=== PATIENT | female | born 2000 | race Caucasian/White ===

== ENCOUNTER 2019-10-01 02:08 | Inpatient (IN) | payer OTHER ==
[~2019-10-01] VITALS: Ht 165.1 cm; Wt 59.4 kg
[~2019-10-01 02:08] MED LIST: CITA20TA6 PO
[2019-10-01] MEDS ORDERED: PREN1TAB59 PO (02:33)
[2019-10-01] MEDS ORDERED: BENADRYL IV PRN (03:00)
[2019-10-01] MEDS ORDERED: BICITRA PO ONE (03:00)
[2019-10-01] MEDS ORDERED: LIDOCAINE 1% VIAL MC PRN (03:00)
[2019-10-01 03:04] LABS: APPEARANCE,URINE CLEAR (CLEAR); UA COLOR YELLOW (YELLOW)
[2019-10-01 03:05] LABS: BILIRUBIN,URINE NEGATIVE (NEGATIVE); UROBILINOGEN,URINE NORMAL (NEGATIVE)
[2019-10-01] MEDS ORDERED: CLEOCIN 900 MG-D5W-GALAXY 50 ML IV ONE (03:11)
[2019-10-01] MEDS: LACTATED RINGERS 1,000 ML IV SCH ×2 (03:17→06:34)
[2019-10-01 03:30] LABS: BASOPHIL % 0.1 % (0.0-0.2); EOSINOPHIL % 0.2 % (0.0-5.0); LYMPHOCYTES # 1.43 10^3/uL1 (1.2-5.2); LYMPHOCYTES % 9.6 % (24.0-44.0); MEAN CORP HGB 32.8 pg (26-34); MONOCYTES # 0.8 10^3/uL (0.0-0.4); MONOCYTES % 5.3 % (5.0-12.0); NEUTROPHIL # 12.5 10^3/uL (1.8-8.0); NEUTROPHILS % 84.2 % (41.0-85.0); PLATELET COUNT 222 10^3/uL (150-400); RED CELL DISTRIBUTION WIDTH 13.8 % (11.5-14.5)
[2019-10-01] MEDS ORDERED: WATER ONE (03:30)
[2019-10-01] MEDS ORDERED: NAROPIN 0.2% 100 ML BAG 100 ML ONE (03:30)
[2019-10-01] MEDS ORDERED: OXYTOCIN 30 UNIT/NS 500 ML 500 ML IV ONE (03:32)
[2019-10-01] MEDS ORDERED: CLEOCIN IV SCH (06:00)
--- NOTE | 2019-10-01 06:14 | PCM.OBDEL1 ---
OPERATIVE REPORT OPERATIVE REPORT 40.0 over an intact perineum. Viable male infant Apgars 8/9. Loose nuchal cord reduced over body during delivery. handed to mother. Spontaneous cry. Weight 7 pounds 8 ounces. Delayed cord clamp and cut. Cord blood obtained. Spontaneous placenta. Second-degree vaginal and perineal laceration with left lateral vaginal extension repaired with 2-0 and 3-0 chromic. Mother and stable. QBL 100 mL. Name=LAURO Torerz DO Oct 01, 2019 06:14
[2019-10-01] MEDS ORDERED: DERMOPLAST SPRAY TP PRN (07:30)
[2019-10-01] MEDS ORDERED: TYLENOL PO PRN (07:30)
[2019-10-01] MEDS ORDERED: OXYTOCIN 30 UNIT/NS 500 ML 500 ML IV SCH (07:30)
[2019-10-01] MEDS ORDERED: TUCKS TP PRN (07:30)
[2019-10-01] MEDS ORDERED: MYLANTA PO PRN (07:30)
[2019-10-01] MEDS ORDERED: NORCO 5MG PO PRN ×2 (07:30)
[2019-10-01] MEDS ORDERED: LANOLIN HYDROUS TP PRN (07:30)
[2019-10-01] MEDS: MOTRIN PO PRN ×2 (09:24→19:59)
[2019-10-01] MEDS ORDERED: TUCKS ONE (15:05)
[2019-10-01] MEDS ORDERED: LANOLIN HYDROUS TP ONE (15:05)
[2019-10-01] MEDS ORDERED: DERMOPLAST SPRAY TP ONE (15:05)
[2019-10-01] MEDS ORDERED: MOTRIN ONE (19:53)
[2019-10-01] MEDS ORDERED: COLACE PO ONE (21:14)
[2019-10-01] MEDS: COLACE PO SCH (21:20)
[2019-10-02] MEDS ORDERED: MOTRIN ONE (05:35)
[2019-10-02] MEDS: MOTRIN PO PRN (05:40)
[2019-10-02 05:54] LABS: BASOPHIL % 0.2 % (0.0-0.2); EOSINOPHIL # 0.1 10^3/uL (0.0-0.2); EOSINOPHIL % 0.7 % (0.0-5.0); LYMPHOCYTES # 2.05 10^3/uL1 (1.2-5.2); LYMPHOCYTES % 21.1 % (24.0-44.0); MEAN CORP HGB 32.5 pg (26-34); MONOCYTES # 0.6 10^3/uL (0.0-0.4); MONOCYTES % 6.5 % (5.0-12.0); NEUTROPHIL # 6.9 10^3/uL (1.8-8.0); PLATELET COUNT 165 10^3/uL (150-400); RED CELL DISTRIBUTION WIDTH 14.4 % (11.5-14.5)
--- NOTE | 2019-10-02 11:17 | PCM.HP ---
OB-Chief Complaint and HPI Date/Diagnosis Date: Oct 02, 2019 Time: 11:14 Admit Dx: (1) 40 weeks gestation of ICD Codes: Z3A.40 - 40 weeks gestation of SNOMED: 44242672 (2) Active labor at term SNOMED: 85956198 (3) Positive GBS test ICD Codes: B95.1 - Streptococcus, group B, as the cause of diseases classified elsewhere SNOMED: 940739871, 524326215 Chief Complaint/History(PI) : 1 Para: 0 EDC: Oct 01, 2019 Reason for admission: active labor Past Family/Social History Patient History: FH: stroke 33 FATHER Hypertension No known health problems 32 MOTHER G8 BROTHER G8 BROTHER G8 BROTHER G8 SISTER G8 SISTER No Family History of: Alzheimer's disease Asthma Cerebrovascular disorder Chronic obstructive pulmonary disease Congestive heart failure Diabetes insipidus Diabetes mellitus Parkinson's disease Unknown Rubella: immune RPR/VDRL: Negative GBS Status: Positive HBsAG: Negative Provider Note: Pt is a 18 y/o @ 40.0 who presented in active labor at 6 cm. SROM shortly after she presented to L&D. Uncomplicated . GBS positive. A/ 18 y/o @ 40.0 Labor GBS positive P/ GBS prophylaxis (PCN allergy) epidural prn Expectant management OB EXAM Physical Exam Vital Signs: Weight: 131 Allergies Coded Allergies Type Severity Reaction Last Updated Verified Penicillins Allergy Intermediate SWELLING 10/01/19 Yes clonazepam Allergy Unknown 10/01/19 Yes LABS Laboratory Tests Test 10/01/19 03:08 HIV-1 Antibody NON-REACTIVE (NONREACTIVE) HIV-2 Antibody NON-REACTIVE (NONREACTIVE) LAURO HAIRSTON DO Oct 02, 2019 11:17
--- NOTE | 2019-10-02 11:21 | PRM.PN ---
Assessment/Plan Assessment/Plan PPD # 1 Pt is doing well and has no current complaints. Pain is well controlled with Motrin. She is ambulating and urinating without difficulty. Tolerating regular diet. Having some difficulty with latching but is using the breast pump with success. VS ABD-Firm fundus EX-Full ROM, NT, Neg Yeny's A/ 18 y/o @ 40.0 s/p , PPD # 1 GBS + P/ Pain management Continue PP care Breast feeding assistance LAURO HAIRSTON DO Oct 02, 2019 11:21
[2019-10-02] MEDS ORDERED: COLACE PO ONE (19:45)
[2019-10-02] MEDS: COLACE PO SCH (19:52)
[2019-10-03] MEDS ORDERED: MOTRIN ONE (06:22)
[2019-10-03] MEDS: MOTRIN PO PRN (06:26)
[2019-10-03] MEDS ORDERED: M-M-R II VACCINE WITH DILUENT SQ ONE (09:30)
--- NOTE | 2019-10-03 11:38 | PRM.DC ---
DISCHARGE SUMMARY Y ADMIT DATE: 10/01/2019 DISCHARGE DATE: 10/03/2019 ADMITTING DIAGNOSIS: Active labor, 40.0 weeks, GBS positive DISCHARGE DIAGNOSIS: Same, HOSPITAL COURSE: Uncomplicated PROCEDURES & DATES: 10/01/2019 COMPLICATIONS: None MEDICATIONS: Ibuprofen DISPOSITION: Stable to home ASSESSMENT & PLAN: A/ 18 y/o @ 40.0 s/p , PPD # 2 GBS + and pumping P/ Pain management Continue PP care Breast feeding assistance D/C to home with 2 week office f/u LAURO HAIRSTON DO Oct 03, 2019 11:38
--- NOTE | 2019-10-03 11:40 | PRM.PN ---
Assessment/Plan Assessment/Plan PPD # 2 Patient is doing well today. Has no current complaints. In room with grandmother and infant. Breast-feeding and using breast pump. Think she would like to use breast pump only about well try to put son to the breast first for stimulation. Ambulating and urinating without difficulty. Pain controlled with Motrin. Mood is stable. Has been working with CPS in regards to FOB same infant. Has a scheduled timed supervised visit for tomorrow. States FOB was positive for drug screen and will have limited interaction with the due to CPS guidelines. Patient lives at home with her grandmother and grandfather and has good family support. They are actively supporting her through this journey. ABD-Firm fundus, EX-Full ROM, NT ASSESSMENT & PLAN: A/ 18 y/o @ 40.0 s/p , PPD # 2 GBS + and pumping w/ supplement P/ Pain management Continue PP care Breast feeding assistance D/C to home with 2 week office f/u LAURO HAIRSTON DO Oct 03, 2019 11:40
[2019-10-03 12:00] VITALS: BP 120/73
== END 2019-10-03 14:10 | disposition home or self-care (01) | DRG 560 ==
LOC: EEVIPCON 02:08 → ATP 02:08 → LND 03:06 → EEVIPCON 03:08 → OBSVTOIN 03:08
PROVIDERS: ADMIT Obstetrics & Gynecology; ATTEND Obstetrics & Gynecology
PROC: 10E0XZZ Delivery of Products of Conception, External Approach (ICD-10-PCS; principal; 2019-10-01)
PROC: 0KQM0ZZ Repair Perineum Muscle, Open Approach (ICD-10-PCS; 2019-10-01)
DX: O99.824 Streptococcus B carrier state complicating childbirth (principal); Z37.0 Single live birth; Z3A.40 40 weeks gestation of pregnancy; Z88.0 Allergy status to penicillin; O69.81X0 Labor and delivery complicated by cord around neck, without compression, not applicable or unspecified; Z82.3 Family history of stroke; O70.1 Second degree perineal laceration during delivery; Z82.49 Family history of ischemic heart disease and other diseases of the circulatory system
CPT/HCPCS: 36415; 59610; 81000; 84112; 85025; 86318; 86592; 86900; 87340; G0378; J2001; J7120; 90707; J3490

== ENCOUNTER → 2020-03-30 | Outpatient (CLI) | payer OTHER ==
[~2020-03-30] MED LIST changes: +PREN1TAB59 PO
--- NOTE | 2020-03-30 15:34 | DIREP ---
PROCEDURE:US OB 1ST TRI - TV COMPARISON:None. INDICATIONS:UNSPECIFIED TRIMESTER NORMAL TECHNIQUE:Transabdominal and endovaginal pelvic ultrasound images were obtained. Endovaginal images were obtained to optimally evaluate the and maternal adnexal structures. FINDINGS: GESTATIONAL SAC:Present. YOLK SAC: Present. POLE: Present. [place]-rump length of 6.24 cm corresponding with an estimated gestational age of 12 weeks 4 days. Estimated due date 10/08/2020. CARDIAC ACTIVITY:Present. 159 bpm. UTERUS:Normal. 15.6 x 8.4 x 9.7 cm. OVARIES:Normal. Right measures 3.6 x 1.4 x 2.0 cm. Left measures 3.3 x 1.5 x 1.8 cm. No suspicious adnexal mass. CUL-DE-SAC:Normal. OTHER: Survey of the placental anatomic structure and amniotic fluid could not be performed because of gestational age (<14 weeks). CONCLUSION: Single live intrauterine with estimated gestational age of 12 weeks 4 days. Dictated by: James Chanel M.D. On 03/30/2020 at 03:30 PM
== END | disposition home or self-care (01) ==
LOC: RAD 13:33
PROVIDERS: ATTEND Obstetrics & Gynecology
DX: Z34.80 Encounter for supervision of other normal pregnancy, unspecified trimester (principal); Z3A.00 Weeks of gestation of pregnancy not specified
CPT/HCPCS: 76801; 76817

== ENCOUNTER → 2020-04-24 | Outpatient (CLI) | payer OTHER ==
[2020-04-24 10:19] LABS: MEAN CORP HGB 33.5 pg (26-34); RED CELL DISTRIBUTION WIDTH 12.2 % (11.5-14.5)
== END | disposition home or self-care (01) ==
LOC: LAB 09:56
PROVIDERS: ATTEND Obstetrics & Gynecology
DX: Z34.02 Encounter for supervision of normal first pregnancy, second trimester (principal); Z3A.00 Weeks of gestation of pregnancy not specified
CPT/HCPCS: 36415; 82105; 85027; 86318; 86592; 86762; 86900